=== PATIENT | male | born 1945 | race Caucasian/White ===

== ENCOUNTER → 2020-01-17 | Outpatient (CLI) | payer MEDICARE ==
[2019-09-13 11:00] VITALS: BP 119/64
[~2020-01-17] MED LIST: ASPI325T8 PO; ATORVASTATIN CA80 MG PO; CLOP75TA PO; GABA300C18 PO; GABA600T7 PO; METO-239 PO; METO25TA4 PO; NAPR-514 PO; TAMS0.4C97 PO
--- NOTE | 2020-01-17 10:24 | CARD ---
MR#: [id number] Date of Study: 01/17/2020 Ordering Physician: KRISTAL JENNINGS, Referring Physician: KRISTAL JENNINGS Tech: Lacey Cruz RDCS APPROVED REPORT EXAM: Two-dimensional and M-mode echocardiogram with Doppler and color Doppler. Other Information Quality : Good INDICATION Ischemic Cardiomyopathy Surgery/Intervention CABG: Date: 2003 2D DIMENSIONS RVDd2.8 (2.9-3.5cm)Left Atrium(2D)2.8 (1.6-4.0cm) IVSd0.9 (0.7-1.1cm)Aortic Root(2D)3.6 (2.0-3.7cm) LVDd4.9 (3.9-5.9cm)LVOT Diameter2.6 (1.8-2.4cm) PWd0.9 (0.7-1.1cm)LVDs3.4 (2.5-4.0cm) FS (%) 23.0 %SV65.7 ml M-Mode DIMENSIONS Aortic Root3.55 (2.2-3.7cm) Aortic Valve AoV Peak Nate.106.8cm/sAoV VTI23.0cm AO Peak GR.4.6mmHgLVOT Peak Nate.91.7cm/s AO Mean GR.3mmHgAVA (VMAX)4.39cm2 NICKI (VTI)4.50cm2 Mitral Valve MV E Ovmfdakv73.1cm/sMV DECEL [id number] MV A Hpasilyu09.5cm/sE/A Ratio1.1 Tricuspid Valve TR P. Omglzclg099pc/sRAP [id number] TR Peak Gr.81fvVpFNTH80oxNg Pulmonary Vein S1 Sawnipfq98.9cm/sD2 Njqjuqez87.2cm/s LEFT VENTRICLE The left ventricle is normal size. There is normal left ventricular wall thickness. Left ventricle sy stolic function is mildly impaired. The Ejection Fraction is 45-50%. Septal motion consistent with po st-operative state. There is mild hypokinesis in the inferior wall. Transmitral Doppler flow pattern is Grade I-abnormal relaxation pattern. RIGHT VENTRICLE The right ventricle is normal size. The right ventricular systolic function is normal. ATRIA The left atrium size is normal. The right atrium size is normal. The interatrial septum is intact wit h no evidence for an atrial septal defect or patent foramen ovale as noted on 2-D or Doppler imaging. AORTIC VALVE The aortic valve is mildly thickened but opens well. Doppler and Color Flow revealed no significant a ortic regurgitation. There is no significant aortic valvular stenosis. MITRAL VALVE The mitral valve is calcified but opens well. There is no evidence of mitral valve prolapse. There is no mitral valve stenosis. Doppler and Color-flow revealed mild mitral regurgitation. TRICUSPID VALVE The tricuspid valve is normal in structure and function. Doppler and Color Flow revealed mild tricusp id regurgitation. The PA pressure was estimated at 29 mmHg. There is no tricuspid valve stenosis. PULMONIC VALVE The pulmonic valve is not well visualized. Doppler and Color Flow revealed trace pulmonic valvular re gurgitation. There is no pulmonic valvular stenosis. GREAT VESSELS The aortic root is normal in size. The ascending aorta is mildly dilated at 3.5 cm. The IVC is normal in size and collapses >50% with inspiration. PERICARDIAL EFFUSION There is no evidence of significant pericardial effusion. Critical Notification Critical Value: No <Conclusion> The left ventricle is normal size. Left ventricle systolic function is mildly impaired. The Ejection Fraction is 45-50%. Septal motion consistent with post-operative state. There is mild hypokinesis in the inferior wall. Doppler and Color Flow revealed no significant aortic regurgitation. There is no significant aortic valvular stenosis. Doppler and Color-flow revealed mild mitral regurgitation. Doppler and Color Flow revealed mild tricuspid regurgitation. The PA pressure was estimated at 29 mmHg. The ascending aorta is mildly dilated at 3.5 cm. Signed by : Germain Lozano MD Electronically Approved : 01/17/2020 10:23:37
--- NOTE | 2020-01-17 11:19 | RAD ---
MR#: [id number] Date of Study: 01/17/2020 Ordering Physician: KRISTAL JENNINGS, Referring Physician: KRISTAL JENNINGS Tech: Nava Espino RDMS, MARCO, RTR APPROVED REPORT Patient Location: OUT-PATIENT Indications PAD Risk Factors History of Lower Extremity PAD: Bilaterally Hypertension Cardiac Disease VELOCITY AND DOPPLER WAVEFORM ANALYSIS RIGHT cm/secWaveformSeverity LEFT cm/secWaveform Severity pCFA 162.0pCFA 111.3 dCFA 119.2dCFA 112.1 Prof Fem Art. 81.0Prof Fem Art. 156.7 Fem Art Prox. 134.2Fem Art Prox. 128.3 Fem Art Mid. 128.4Fem Art Mid. 112.5 Fem Art Dist. 126.1Fem Art Dist. 97.8 Pop Art(AK) 70.7Pop Art(AK) 94.7 POULTRY HUSBANDMAN Prox. 51.4PTA Prox. 46.3 POULTRY HUSBANDMAN Dist. 70.1PTA Dist. 70.3 Per Art Prox. 70.7Per Art Prox. 55.5 MIGUEL Prox. 68.8ATA Prox. 61.1 DPA 68DPA 51 Findings Grayscale images of the bilateral lower extremity arterial vessels demonstrate moderate diffuse ather osclerotic plaque. On the right side there are grossly normal velocities with biphasic waveforms. O n the left side there are mostly biphasic waveforms with grossly normal velocities. There is three-v essel runoff bilaterally below the knees. No significant stenosis is identified. Critical Notification Critical Value: No <Conclusion> 1. No significant lower extremity arterial disease with moderate diffuse atherosclerotic plaquing no wilver. Signed by : Gerson Girard, Electronically Approved : 01/17/2020 11:18:38
== END | disposition home or self-care (01) ==
LOC: US 08:10
PROVIDERS: ATTEND Internal Medicine Cardiovascular Disease
DX: I08.1 Rheumatic disorders of both mitral and tricuspid valves (principal); I73.9 Peripheral vascular disease, unspecified
CPT/HCPCS: 93306; 93925

== ENCOUNTER 2021-09-24 11:26 | Inpatient (IN) | payer MEDICARE ==
[~2021-09-24] VITALS: Ht 177.8 cm; Wt 78.1 kg
[2021-09-24 12:03] LABS: BASO % 1 % (0-3); EOS # 0.2 x10^3/uL (0.0-0.7); EOS % 3 % (0-3); HEMATOCRIT 43.4 % (39.0-53.0); LYMPH # 1.3 x10^3/uL (1.0-4.8); LYMPH % 21 % (24-48); MEAN CORPUSCULAR HEMOGLOBIN 32 pg (25-35); MEAN CORPUSCULAR HGB CONC 35 g/dL (31-37); MEAN CORPUSCULAR VOLUME 94 fL (79-100); MONO # 0.8 x10^3/uL (0.0-1.1); MONO % 13 % (0-9); NEUT # 3.8 x10^3/uL (1.8-7.7); NEUT % 63 % (31-73); PLATELET COUNT 170 x10^3/uL (140-400); RED BLOOD COUNT 4.63 x10^6/uL (4.30-5.70); RED CELL DISTRIBUTION WIDTH 14.6 % (11.5-14.5); WHITE BLOOD COUNT 6.1 x10^3/uL (4.0-11.0)
--- NOTE | 2021-09-24 12:15 | RAD ---
EXAM: XR CHEST 1V 09/24/2021 11:52 AM CLINICAL INDICATION: High-grade heart block COMPARISON: Chest radiograph 09/12/2019 TECHNIQUE: AP upright view of the chest FINDINGS: The heart is normal in size. There are changes of median sternotomy. Slightly increased di ffuse interstitial prominence. No consolidation, pleural effusion, or pneumothorax. IMPRESSION: Slightly increased diffuse interstitial prominence, which could be seen with pulmonary v ascular congestion or infection. Electronically signed by: Dariana Vincent MD (09/24/2021 12:13 PM) [id number]
[2021-09-24 12:20] LABS: CALCIUM 8.5 mg/dL (8.5-10.1); CREATININE 0.8 mg/dL (0.7-1.3); GFR 94.2; POTASSIUM 3.9 mmol/L (3.5-5.1)
[2021-09-24 12:21] LABS: MAGNESIUM 2.1 mg/dL (1.8-2.4); PHOSPHORUS 3.9 mg/dL (2.6-4.7)
[2021-09-24 12:26] LABS: ALBUMIN 3.5 g/dL (3.4-5.0); ALBUMIN/GLOBULIN RATIO 0.9 (1.0-1.7); TOTAL BILIRUBIN 0.5 mg/dL (0.2-1.0); TOTAL PROTEIN 7.4 g/dL (6.4-8.2)
--- NOTE | 2021-09-24 12:43 | PHYS DOC ---
Past Medical History Past Medical History: High Cholesterol, Hypertension Past Surgical History: Coronary Bypass Surgery, Tonsillectomy, Other Additional Past Surgical Histo: cardiac cath, lens implant Smoking Status: Current Every Day Smoker Alcohol Use: None Drug Use: None General Adult EDM: Chief Complaint: HYPERTENSION HPI: HPI: Patient is a 76 year old male with history of CAD s/p CABG, HTN, HLD who presents with bradycardia. His had been checking at home and had readings in the 30s since yesterday. This morning he seemed slightly fatigued, so his brought him to the emergency department. He denies any symptoms such as palpitations, lightheadedness, chest pain, shortness of breath, but does endorse some mild fatigue. States he is otherwise been in his normal state of health. He has had discussions regarding pacemaker placement in the past, but this has been deferred. No recent travel, tick bites, rashes. Takes metoprolol tartrate 12.5 mg twice daily. Last dose was yesterday evening. No other negative inotropic agents are on his medication list. Review of Systems: Review of Systems: Constitutional: Denies fever or chills. Reports fatigue. [] HENT: Denies nasal congestion or sore throat. [] Respiratory: Denies cough or shortness of breath. [] Cardiovascular: Denies chest pain or edema. [] GI: Denies abdominal pain, nausea, vomiting, bloody stools or diarrhea. [] : Denies dysuria. [] Musculoskeletal: Denies back pain or joint pain. [] Integument: Denies rash. [] Neurologic: Denies headache, focal weakness or sensory changes. [] Psychiatric: Denies depression or anxiety. [] Heart Score: C/O Chest Pain: No Allergies: Allergies: Allergies Coded Allergies Type Severity Reaction Last Updated Verified No Known Drug Allergies 09/24/21 No Physical Exam: PE: Constitutional: Well-appearing, no acute distress. Stigmata of frequence tobacco abuse with yellow stained fingernails and hair. HENT: Normocephalic, atraumatic Neck: Normal range of motion, no tenderness, supple, no stridor. [] Cardiovascular: Bradycardic and regular Lungs & Thorax: Bilateral breath sounds clear to auscultation [] Abdomen: Bowel sounds normal, soft, no tenderness, no masses, no pulsatile masses. [] Skin: Warm, dry, no erythema, no rash. [] Back: No tenderness, no CVA tenderness. [] Extremities: No tenderness, no cyanosis, no clubbing, ROM intact, no edema. [] Neurologic: Alert and oriented X 3, normal motor function, normal sensory function, no focal deficits noted. [] Psychologic: Affect normal, judgement normal, mood normal. [] Current Patient Data: Labs: Laboratory Tests Test 09/24/21 11:58 White Blood Count 6.1 x10^3/uL (4.0-11.0) Red Blood Count 4.63 x10^6/uL (4.30-5.70) Hemoglobin 15.0 g/dL (13.0-17.5) Hematocrit 43.4 % (39.0-53.0) Mean Corpuscular Volume 94 fL (79-100) Mean Corpuscular Hemoglobin 32 pg (25-35) Mean Corpuscular Hemoglobin Concent 35 g/dL (31-37) Red Cell Distribution Width 14.6 % (11.5-14.5) H Platelet Count 170 x10^3/uL (140-400) Neutrophils (%) (Auto) 63 % (31-73) Lymphocytes (%) (Auto) 21 % (24-48) L Monocytes (%) (Auto) 13 % (0-9) H Eosinophils (%) (Auto) 3 % (0-3) Basophils (%) (Auto) 1 % (0-3) Neutrophils # (Auto) 3.8 x10^3/uL (1.8-7.7) Lymphocytes # (Auto) 1.3 x10^3/uL (1.0-4.8) Monocytes # (Auto) 0.8 x10^3/uL (0.0-1.1) Eosinophils # (Auto) 0.2 x10^3/uL (0.0-0.7) Basophils # (Auto) 0.0 x10^3/uL (0.0-0.2) Sodium Level 141 mmol/L (136-145) Potassium Level 3.9 mmol/L (3.5-5.1) Chloride Level 106 mmol/L (98-107) Carbon Dioxide Level 25 mmol/L (21-32) Anion Gap 10 (6-14) Blood Urea Nitrogen 18 mg/dL (8-26) Creatinine 0.8 mg/dL (0.7-1.3) Estimated GFR (Cockcroft-Gault) 94.2 BUN/Creatinine Ratio 23 (6-20) H Glucose Level 94 mg/dL (70-99) Calcium Level 8.5 mg/dL (8.5-10.1) Phosphorus Level 3.9 mg/dL (2.6-4.7) Magnesium Level 2.1 mg/dL (1.8-2.4) Total Bilirubin 0.5 mg/dL (0.2-1.0) Aspartate Amino Transferase (AST) 27 U/L (15-37) Alanine Aminotransferase (ALT) 43 U/L (16-63) Alkaline Phosphatase 79 U/L (46-116) Troponin I High Sensitivity 13 ng/L (4-75) Total Protein 7.4 g/dL (6.4-8.2) Albumin 3.5 g/dL (3.4-5.0) Albumin/Globulin Ratio 0.9 (1.0-1.7) L Thyroid Stimulating Hormone (TSH) 4.518 uIU/mL (0.358-3.74) H Laboratory Tests 09/24/21 11:58 Laboratory Tests 09/24/21 11:58 Vital Signs: Vital Signs Date Time Temp Pulse Resp B/P (MAP) Pulse Ox O2 Delivery O2 Flow Rate FiO2 09/24/21 12:05 38 16 173/74 (107) 97 Room Air 09/24/21 11:29 97.9 97.9 EKG: EKG: Third-degree heart block with junctional escape rhythm. Junctional rate 39. Atrial rate approximately 85. [] Radiology/Procedures: Radiology/Procedures: [] Impression: [facility] [address] [place] [address] IMAGING REPORT Signed PATIENT: CHANDLER PETER ACCOUNT: [id number] : 1945 LOCATION: ER AGE: 76 SEX: M EXAM STATUS: PRE ER ORD. PHYSICIAN: NADIA PATINO MD REASON: high degree heart block PROCEDURE: CHEST AP ONLY EXAM: XR CHEST 1V 09/24/2021 11:52 AM CLINICAL INDICATION: High-grade heart block COMPARISON: Chest radiograph 09/12/2019 TECHNIQUE: AP upright view of the chest FINDINGS: The heart is normal in size. There are changes of median sternotomy. Slightly increased diffuse interstitial prominence. No consolidation, pleural effusion, or pneumothorax. IMPRESSION: Slightly increased diffuse interstitial prominence, which could be seen with pulmonary vascular congestion or infection. Electronically signed by: Dariana Vincent MD (09/24/2021 12:13 PM) [id number] DICTATED and SIGNED BY: DARIANA VINCENT MD DATE: 09/24/21 [id number] Course & Med Decision Making: Course & Med Decision Making Pertinent Labs and Imaging studies reviewed. (See chart for details) Patient is 76-year-old male with history of HTN, HLD, CAD s/p CABG who presents with third-degree heart block. Junctional escape rhythm is in the 30s. Blood pressures been stable. Patient complains of mild fatigue, but is otherwise asymptomatic. He is on a small dose of metoprolol tartrate 12.5 mg twice daily, with last dose yesterday evening. No other negative inotropic agents. No tick bites or exposure to Lyme endemic areas. Electrolytes, TSH, troponin pending. Cardiology paged on patient arrival. Dr. Leiva has requested dopamine infusion peripherally at 2.5 mcg/kg/min with no titration. Patient will be admitted to hospitalist service at ICU level care. Makenzie Disclaimer: Makenzie Disclaimer: This electronic medical record was generated, in whole or in part, using a voice recognition dictation system. Departure Departure Impression: Primary Impression: Third degree heart block by electrocardiogram Disposition: ADMITTED INPATIENT Admitting Physician: SUBHA benito) Condition: STABLE Referrals: ALFRED MARINO MD (PCP) NADIA PATINO MD Sep 24, 2021 12:43
--- NOTE | 2021-09-24 13:20 | PDOC2 ---
MARLENY TANG BRICK VENEER MAKER 09/24/21 1320: CARDIAC CONSULT DATE OF CONSULT Date of Consult DATE: 09/24/21 TIME: 13:17 REASON FOR CONSULT Reason for Consult: 3rd degree heart block REFERRING PHYSICIAN Referring Physician: Dr. calloway SOURCE Source: Chart review, Patient HISTORY OF PRESENT ILLNESS HISTORY OF PRESENT ILLNESS This is a 76 yo male who presented secondary to bradycardia. reports that patient has not been himself since last . Had been sleeping more and appeared more fatigue, although patient himself expressed no complaints. He denies any dizziness, lightheadedness, diaphoresis, shortness of breath, chest pain, or nausea/vomiting. decided to take his vital signs yesterday and his pulse did not register. checked pulse and was noted in the 30's. She called and made appointment with his sap director for . This morning, thought he was a little confused and HR continued to be in the 30's. She called [facility], who told him not to take his metoprolol and to go to the ED. Patient was noted in complete heart block with HR in the 30's upon arrival. Dopamine was initiated. Patient is asymptomatic and vital signs are stable. PAST MEDICAL HISTORY Cardiovascular: CAD, CHF (ICM), HTN, Hyperlipidemia, Other (PAD) PAST SURGICAL HISTORY Past Surgical History: CABG SOCIAL HISTORY Smoke: 1 pack per day ALCOHOL: none Drugs: None Lives: with Family CURRENT MEDICATIONS CURRENT MEDICATIONS Current Medications Medications (Trade) Dose Ordered Sig/Morris Route PRN Reason Start Time Stop Time Status Last Admin Dose Admin Dopamine HCl/ Dextrose 250 ml @ 6.816 mls/ hr CONT PRN IV BRADYCARDIA 09/24/21 13:00 09/24/21 13:08 ALLERGIES ALLERGIES: Coded Allergies: No Known Drug Allergies (Unverified , 09/24/21) ROS Review of System 14 point ROS conducted with pertinent positives noted above in HPI PHYSICAL EXAM General: Alert, Oriented X3, Cooperative, No acute distress HEENT: Atraumatic, Mucous membr. moist/pink Lungs: Clear to auscultation Heart: Other (2nd degree type II AVB with HR in the upper 30's ) Abdomen: Soft Extremities: No edema Skin: No significant lesion Neuro: Normal speech, Sensation intact Psych/Mental Status: Mental status NL, Mood NL MUSCULOSKELETAL: Osteoarthritic changes both hands VITALS/I&O VITALS/I&O: Vital Signs Date Time Temp Pulse Resp B/P (MAP) Pulse Ox O2 Delivery O2 Flow Rate FiO2 09/24/21 12:05 38 16 173/74 (107) 97 Room Air 09/24/21 11:29 97.9 97.9 LABS Lab: Laboratory Tests Test 09/24/21 11:58 White Blood Count 6.1 x10^3/uL (4.0-11.0) Red Blood Count 4.63 x10^6/uL (4.30-5.70) Hemoglobin 15.0 g/dL (13.0-17.5) Hematocrit 43.4 % (39.0-53.0) Mean Corpuscular Volume 94 fL (79-100) Mean Corpuscular Hemoglobin 32 pg (25-35) Mean Corpuscular Hemoglobin Concent 35 g/dL (31-37) Red Cell Distribution Width 14.6 % (11.5-14.5) H Platelet Count 170 x10^3/uL (140-400) Neutrophils (%) (Auto) 63 % (31-73) Lymphocytes (%) (Auto) 21 % (24-48) L Monocytes (%) (Auto) 13 % (0-9) H Eosinophils (%) (Auto) 3 % (0-3) Basophils (%) (Auto) 1 % (0-3) Neutrophils # (Auto) 3.8 x10^3/uL (1.8-7.7) Lymphocytes # (Auto) 1.3 x10^3/uL (1.0-4.8) Monocytes # (Auto) 0.8 x10^3/uL (0.0-1.1) Eosinophils # (Auto) 0.2 x10^3/uL (0.0-0.7) Basophils # (Auto) 0.0 x10^3/uL (0.0-0.2) Sodium Level 141 mmol/L (136-145) Potassium Level 3.9 mmol/L (3.5-5.1) Chloride Level 106 mmol/L (98-107) Carbon Dioxide Level 25 mmol/L (21-32) Anion Gap 10 (6-14) Blood Urea Nitrogen 18 mg/dL (8-26) Creatinine 0.8 mg/dL (0.7-1.3) Estimated GFR (Cockcroft-Gault) 94.2 BUN/Creatinine Ratio 23 (6-20) H Glucose Level 94 mg/dL (70-99) Calcium Level 8.5 mg/dL (8.5-10.1) Phosphorus Level 3.9 mg/dL (2.6-4.7) Magnesium Level 2.1 mg/dL (1.8-2.4) Total Bilirubin 0.5 mg/dL (0.2-1.0) Aspartate Amino Transferase (AST) 27 U/L (15-37) Alanine Aminotransferase (ALT) 43 U/L (16-63) Alkaline Phosphatase 79 U/L (46-116) Troponin I High Sensitivity 13 ng/L (4-75) Total Protein 7.4 g/dL (6.4-8.2) Albumin 3.5 g/dL (3.4-5.0) Albumin/Globulin Ratio 0.9 (1.0-1.7) L Thyroid Stimulating Hormone (TSH) 4.518 uIU/mL (0.358-3.74) H Laboratory Tests 09/24/21 11:58 Laboratory Tests 09/24/21 11:58 ECHOCARDIOGRAM ECHOCARDIOGRAM <Conclusion> The left ventricle is normal size. Left ventricle systolic function is mildly impaired. The Ejection Fraction is 45-50%. Septal motion consistent with post-operative state. There is mild hypokinesis in the inferior wall. Doppler and Color Flow revealed no significant aortic regurgitation. There is no significant aortic valvular stenosis. Doppler and Color-flow revealed mild mitral regurgitation. Doppler and Color Flow revealed mild tricuspid regurgitation. The PA pressure was estimated at 29 mmHg. The ascending aorta is mildly dilated at 3.5 cm. DATE: 01/17/20 1017 HEART CATH HEART CATH Conclusion 1. Severe [place] vessel coronary artery disease s/p coronary artery bypass surgery as described above. The left internal mammary artery graft to the left anterior descending artery appeared atretic probably secondary to good antegrade flow in [place] vessel. The saphenous vein graft to the second and third obtuse marginal branches are occluded as well probably secondary to good antegrade flow. The saphenous vein graft to the diagonal branch is patent with significant lesion as described above but since his [place] vessel is chronically occluded the on the anastomosis, this can be managed medically. The saphenous vein graft to the right coronary artery showed significant 90-95% stenosis in the proximal segment, culprit vessel for patient's symptoms. 2. Successful PCI/drug eluting stent placement to the saphenous vein graft to the right coronary artery with distal embolic protection using filter wire. 3. Moderate to severe left ventricle systolic dysfunction with ejection fraction estimated at 30%. Recommendations 1. Aspirin 325 mg daily for one month followed by 81 mg daily 2. Plavix 75 mg daily for preferably one year 3. Cardiovascular risk factor modification including smoking cessation 4. Optimization of medical therapy for ischemic cardio myopathy and repeat 2-D echo in 3 months to evaluate the need for AICD implantation. DATE: 09/12/19 1527 ASSESSMENT/PLAN ASSESSMENT/PLAN 1. High-grade AV block with significant bradycardia; Initial EKG shows complete heart block. Dopamine initiated. Presently 2nd degree type II, AV block with HR in the upper 30's. Is asymptomatic and hemodynamically stable. 2. CAD; s/p CABG with 2004 and subsequent PCI/TRU to SVG to RCA. clinically stable. 3. H/o ischemic cardiomyopathy; echo 01/16 shows LV recovery with EF 45-50% 4. Accelerated hypertension 5. Hyperlipidemia; statin 6. Tobaccoism; discussed/encouraged cessation. patient is not interested at this time Recommendations Continue Dopamine gtt Hold metoprolol Avoid AV zahida blocking agents Given complete heart block, sick sinus syndrome, patient will need permanent pacemaker implantation. R/b/a discussed with patient and and they are agreeable Secondary prevention. Hold Plavix COVID swab NPO p MN Will plan for implantation tomorrow KRISTAL JENNINGS MD 09/24/21 1636: CARDIAC CONSULT ASSESSMENT/PLAN ASSESSMENT/PLAN Patient seen and examined. Agree with CLINICAL TRIAL ASSOCIATE's assessment and plan. Patient with complete heart block with symptomatic bradycardia -hemodynamically stable at this time Stop metoprolol and continue with dopamine infusion for chronotropic support CAD status clinically stable -continue current secondary prevention measures Ischemic cardiomyopathy clinically well compensated Plan for permanent pacemaker implantation tomorrow Risks and benefits explained and patient is agreeable MARLENY TANG APRN Sep 24, 2021 13:20 KRISTAL JENNINGS MD Sep 24, 2021 16:36
--- NOTE | 2021-09-24 13:28 | PDOC1 ---
History and Physical Date of Service: DOS: DATE: 09/24/21 TIME: 13:28 Chief Complaint: Chief Complain: irregular heartbeat History of Present Illness: HPI: Patient is a 76 year old male with history of CAD s/p CABG, HTN, HLD who presents with bradycardia. His had been checking at home and had readings in the 30s since yesterday. This morning he seemed slightly fatigued, so his brought him to the emergency department. He denies any symptoms such as palpitations, lightheadedness, chest pain, shortness of breath, but does endorse some mild fatigue. States he is otherwise been in his normal state of health. He has had discussions regarding pacemaker placement in the past, but this has been deferred. No recent travel, tick bites, rashes. Takes metoprolol tartrate 12.5 mg twice daily. Last dose was yesterday evening. No other negative inotropic agents are on his medication list. Past Medical/Surgical History: PMH/PSH: Past Medical History: High Cholesterol, Hypertension Past Surgical History: Coronary Bypass Surgery, Tonsillectomy, Other Additional Past Surgical Histo: cardiac cath, lens implant Smoking Status: Current Every Day Smoker Alcohol Use: None Drug Use: None Allergies: Allergies: Coded Allergies: No Known Drug Allergies (Unverified , 09/24/21) Family History: Family History: could not recall any Current Medications: Current Medications Current Medications Dopamine HCl/ Dextrose 250 ml @ 6.816 mls/ hr CONT PRN IV BRADYCARDIA Last administered on 09/24/21at 13:08; Start 09/24/21 at 13:00 Ondansetron HCl (Zofran) 4 mg PRN Q6HRS PRN IVP NAUSEA/VOMITING; Start 09/24/21 at 13:30; Status UNV Calcium Carbonate/ Glycine (Tums) 500 mg PRN Q3HRS PRN PO UPSET STOMACH; Start 09/24/21 at 13:30; Status UNV Info (Non-Icu Electrolyte Protocol) 1 ea PRN DAILY PRN MC SEE COMMENTS; Start 09/24/21 at 13:30; Status UNV Acetaminophen (Tylenol) 650 mg PRN Q6HRS PRN PO Headaches, Temp > 101.5F; Start 09/24/21 at 13:30; Status UNV Senna/Docusate Sodium (Senna Plus) 1 tab BID PO ; Start 09/24/21 at 21:00; Status UNV Active Scripts Active Reported Flomax (Tamsulosin Hcl) 0.4 Mg Cap.er.24h 0.4 Mg PO DAILY Naproxen 500 Mg Tablet 500 Mg PO BID PRN Gabapentin 600 Mg Tablet 300 Mg PO HS Metoprolol Tartrate 25 Mg Tablet 0.5 Tab PO BID Atorvastatin Calcium 80 Mg Tablet 1 Tab PO DAILY Aspirin 325 Mg Tablet 1 Tab PO DAILY Clopidogrel (Clopidogrel Bisulfate) 75 Mg Tablet 1 Tab PO DAILY ROS: Review of Systems Review of System Unless noted in HPI 14pt ros was negative Physical Exam: Vital Signs: Vital Signs Date Time Temp Pulse Resp B/P (MAP) Pulse Ox O2 Delivery O2 Flow Rate FiO2 09/24/21 12:05 38 16 173/74 (107) 97 Room Air 09/24/21 11:29 97.9 97.9 Physcial Exam: GEN: No apparent distress. Alert and oriented HEENT: Normal cephalic, atraumatic, external auditory canals are patent EYES: Extraocular muscles are intact, pupil are equally round and reactive to light and accommodation MUSCULOSKELETAL: Well developed , well nourished, good range of motion ENDOCRINE: No thyromegaly was palpated LYMPHATICS: No cervical chain or axillary nodes were noted HEMATOPOIETIC: No bruising NECK: Supple, no JVD, no thyromegaly was noted LUNGS: Clear to auscultation in all lung gonzalez without rhonchi or wheezing HEART: bradycardia ABDOMEN: Soft, nontender. Positive bowel sounds, no organomegaly, normal bowel sounds EXTREMITIES: Without clubbing, cyanosis, or edema. Pedal pulses intact. Negative Homans sign NEUROLOGIC: Normal speech and tone. A&O x 3, moves all extremities, no obvious focal deficits PSYCHIATRIC: Normal affect, normal mood. Stable SKIN: No ulcerations or rashes, good skin turgor, no jaundice VASCULAR: Good capillary refill, neurovascular bundle appears to be intact Labs: Labs: Laboratory Tests Test 09/24/21 11:58 White Blood Count 6.1 x10^3/uL (4.0-11.0) Red Blood Count 4.63 x10^6/uL (4.30-5.70) Hemoglobin 15.0 g/dL (13.0-17.5) Hematocrit 43.4 % (39.0-53.0) Mean Corpuscular Volume 94 fL (79-100) Mean Corpuscular Hemoglobin 32 pg (25-35) Mean Corpuscular Hemoglobin Concent 35 g/dL (31-37) Red Cell Distribution Width 14.6 % (11.5-14.5) Platelet Count 170 x10^3/uL (140-400) Neutrophils (%) (Auto) 63 % (31-73) Lymphocytes (%) (Auto) 21 % (24-48) Monocytes (%) (Auto) 13 % (0-9) Eosinophils (%) (Auto) 3 % (0-3) Basophils (%) (Auto) 1 % (0-3) Neutrophils # (Auto) 3.8 x10^3/uL (1.8-7.7) Lymphocytes # (Auto) 1.3 x10^3/uL (1.0-4.8) Monocytes # (Auto) 0.8 x10^3/uL (0.0-1.1) Eosinophils # (Auto) 0.2 x10^3/uL (0.0-0.7) Basophils # (Auto) 0.0 x10^3/uL (0.0-0.2) Sodium Level 141 mmol/L (136-145) Potassium Level 3.9 mmol/L (3.5-5.1) Chloride Level 106 mmol/L (98-107) Carbon Dioxide Level 25 mmol/L (21-32) Anion Gap 10 (6-14) Blood Urea Nitrogen 18 mg/dL (8-26) Creatinine 0.8 mg/dL (0.7-1.3) Estimated GFR (Cockcroft-Gault) 94.2 BUN/Creatinine Ratio 23 (6-20) Glucose Level 94 mg/dL (70-99) Calcium Level 8.5 mg/dL (8.5-10.1) Phosphorus Level 3.9 mg/dL (2.6-4.7) Magnesium Level 2.1 mg/dL (1.8-2.4) Total Bilirubin 0.5 mg/dL (0.2-1.0) Aspartate Amino Transf (AST/SGOT) 27 U/L (15-37) Alanine Aminotransferase (ALT/SGPT) 43 U/L (16-63) Alkaline Phosphatase 79 U/L (46-116) Troponin I High Sensitivity 13 ng/L (4-75) Total Protein 7.4 g/dL (6.4-8.2) Albumin 3.5 g/dL (3.4-5.0) Albumin/Globulin Ratio 0.9 (1.0-1.7) Thyroid Stimulating Hormone (TSH) 4.518 uIU/mL (0.358-3.74) Laboratory Tests Test 09/24/21 11:58 White Blood Count 6.1 x10^3/uL (4.0-11.0) Red Blood Count 4.63 x10^6/uL (4.30-5.70) Hemoglobin 15.0 g/dL (13.0-17.5) Hematocrit 43.4 % (39.0-53.0) Mean Corpuscular Volume 94 fL (79-100) Mean Corpuscular Hemoglobin 32 pg (25-35) Mean Corpuscular Hemoglobin Concent 35 g/dL (31-37) Red Cell Distribution Width 14.6 % (11.5-14.5) Platelet Count 170 x10^3/uL (140-400) Neutrophils (%) (Auto) 63 % (31-73) Lymphocytes (%) (Auto) 21 % (24-48) Monocytes (%) (Auto) 13 % (0-9) Eosinophils (%) (Auto) 3 % (0-3) Basophils (%) (Auto) 1 % (0-3) Neutrophils # (Auto) 3.8 x10^3/uL (1.8-7.7) Lymphocytes # (Auto) 1.3 x10^3/uL (1.0-4.8) Monocytes # (Auto) 0.8 x10^3/uL (0.0-1.1) Eosinophils # (Auto) 0.2 x10^3/uL (0.0-0.7) Basophils # (Auto) 0.0 x10^3/uL (0.0-0.2) Sodium Level 141 mmol/L (136-145) Potassium Level 3.9 mmol/L (3.5-5.1) Chloride Level 106 mmol/L (98-107) Carbon Dioxide Level 25 mmol/L (21-32) Anion Gap 10 (6-14) Blood Urea Nitrogen 18 mg/dL (8-26) Creatinine 0.8 mg/dL (0.7-1.3) Estimated GFR (Cockcroft-Gault) 94.2 BUN/Creatinine Ratio 23 (6-20) Glucose Level 94 mg/dL (70-99) Calcium Level 8.5 mg/dL (8.5-10.1) Phosphorus Level 3.9 mg/dL (2.6-4.7) Magnesium Level 2.1 mg/dL (1.8-2.4) Total Bilirubin 0.5 mg/dL (0.2-1.0) Aspartate Amino Transf (AST/SGOT) 27 U/L (15-37) Alanine Aminotransferase (ALT/SGPT) 43 U/L (16-63) Alkaline Phosphatase 79 U/L (46-116) Troponin I High Sensitivity 13 ng/L (4-75) Total Protein 7.4 g/dL (6.4-8.2) Albumin 3.5 g/dL (3.4-5.0) Albumin/Globulin Ratio 0.9 (1.0-1.7) Thyroid Stimulating Hormone (TSH) 4.518 uIU/mL (0.358-3.74) Assessment/Plan Assessment/Plan 3rd Degree Heart Block, hx cad s/p CABG, HTN, HPLD -Admit to hospitalist -Cards consult -Hold Metoprolol -Start Dopamine -Plan for pacemaker 09/25 -NPO midnight Justifications for Admission Other Justification DELBERT GARCIA MD Sep 24, 2021 13:28
[2021-09-24] MEDS ORDERED: ACETAMINOPHEN 325 MG TABLET. PO PRN (13:30)
[2021-09-24] MEDS ORDERED: ONDANSETRON PF 4 MG/2 ML VIAL. IVP PRN (13:30)
[2021-09-24] MEDS ORDERED: CALCIUM CARBONATE 500 MG TAB.CHEW PO PRN (13:30)
[2021-09-24] MEDS ORDERED: ELECTROLYTE (NON-ICU) PROTOCOL. MC PRN (13:30)
[2021-09-24] MEDS: LISINOPRIL 10 MG TABLET PO SCH (14:30)
[2021-09-24] MEDS ORDERED: hydrALAZINE 20 MG/ML VIAL. IVP PRN (14:30)
--- NOTE | 2021-09-24 14:43 | EKG ---
[facility] [address] [place] [address] Test Date: 2021-09-24 Test Time: 11:43:33 Pat Name: CHANDLER PETER Department: Room: Gender: M Automatic Buffer: : [id number] Requested By: NADIA PATINO Order Number: [id number] Reading MD: Alcides Leiva Measurements Intervals [place] Rate: 39 P: 39 MA: 150 QRS: -33 QRSD: 110 T: 73 QT: 524 QTc: 423 Interpretive Statements SINUS BRADYCARDIA ABNORMAL LEFT AXIS DEVIATION INCOMPLETE RIGHT BUNDLE BRANCH BLOCK T ABNORMALITY IN HIGH LATERAL LEADS ABNORMAL ECG Electronically Signed On 09-24-2021 19:24:50 DRY CLEANING MANAGER by Alcides Leiva
[2021-09-24 19:59] VITALS: BP 148/68
[2021-09-24] MEDS ORDERED: ASPI-630 PO (20:02)
--- NOTE | 2021-09-24 20:10 | NUR ---
The patient, CHANDLER PETER, 76 y/o, M admitted by DELBERT GARCIA MD, was given written information regarding hospital policies, unit procedures and contact persons. Valuables were checked and documented. call light in reach will cont to monitor pt status and safety. pmrn
[2021-09-24 20:59] VITALS: BP 148/71
[2021-09-24] MEDS: GABAPENTIN 300 MG CAPSULE. PO SCH (21:36)
[2021-09-24] MEDS: SENNOSIDES/DOCUSATE 8.6/50MG TABLET. PO SCH (21:36)
[2021-09-24 21:59] VITALS: BP 136/62
[2021-09-24 23:05] VITALS: BP 139/73
[2021-09-25] VITALS (10 sets, daily range): BP systolic 115–166; BP diastolic 49–77
[2021-09-25 05:11] LABS: BASO % 1 % (0-3); EOS # 0.3 x10^3/uL (0.0-0.7); EOS % 4 % (0-3); HEMATOCRIT 41.9 % (39.0-53.0); HEMOGLOBIN 14.1 g/dL (13.0-17.5); LYMPH # 1.3 x10^3/uL (1.0-4.8); LYMPH % 21 % (24-48); MEAN CORPUSCULAR HEMOGLOBIN 32 pg (25-35); MEAN CORPUSCULAR HGB CONC 34 g/dL (31-37); MEAN CORPUSCULAR VOLUME 94 fL (79-100); MONO # 0.8 x10^3/uL (0.0-1.1); MONO % 13 % (0-9); NEUT % 62 % (31-73); PLATELET COUNT 155 x10^3/uL (140-400); RED BLOOD COUNT 4.45 x10^6/uL (4.30-5.70); RED CELL DISTRIBUTION WIDTH 14.4 % (11.5-14.5); WHITE BLOOD COUNT 6.4 x10^3/uL (4.0-11.0)
[2021-09-25 05:14] LABS: CALCIUM 8.4 mg/dL (8.5-10.1); CREATININE 0.8 mg/dL (0.7-1.3); GFR 94.2; POTASSIUM 3.9 mmol/L (3.5-5.1)
[2021-09-25 05:20] LABS: PROTHROMBIN TIME PATIENT 14.9 SEC (11.7-14.0)
[2021-09-25] MEDS ORDERED: ceFAZolin SODIUM IV Push 1 GM VIAL. IVP ONE ×4 (06:00→16:30)
[2021-09-25] MEDS ORDERED: ceFAZolin SODIUM 1 GM in IV NORMAL SALINE 100ML 100 ML IRR ONE (10:30)
[2021-09-25] MEDS ORDERED: LIDOCAINE 2%/EPI 1:100,000 20 ML VIAL. IJ ONE (10:30)
[2021-09-25] MEDS ORDERED: fentaNYL PF VIAL 100 MCG/2 ML VIAL IV ONE (10:30)
[2021-09-25] MEDS ORDERED: MIDAZOLAM HCL/PF 2 MG/2 ML VIAL. IV ONE (10:30)
[2021-09-25] MEDS ORDERED: LIDOCAINE 2%/EPI 1:100,000 20 ML VIAL. ONE (10:49)
[2021-09-25] MEDS ORDERED: MIDAZOLAM HCL/PF 2 MG/2 ML VIAL. ONE (11:10)
[2021-09-25] MEDS ORDERED: fentaNYL PF VIAL 100 MCG/2 ML VIAL ONE (11:10)
--- NOTE | 2021-09-25 11:36 | PDOC ---
[facility] PROGRESS NOTE Date of Service DOS: DATE: 09/25/21 TIME: 11:35 Chief Complaint Chief Complaint 3rd Degree Heart Block, hx cad s/p CABG, HTN, HPLD -Admit to hospitalist -Cards consult -Hold Metoprolol -Start Dopamine -Plan for pacemaker 09/25 History of Present Illness History of Present Illness 09/25 Planning for pacemaker today. Patient off floor for pacemaker. Overnight events reviewed. Labs and tele reviewed. Will eval again after procedure. Vitals/I&O Vitals/I&O: Vital Signs Date Time Temp Pulse Resp B/P (MAP) Pulse Ox O2 Delivery O2 Flow Rate FiO2 09/25/21 07:30 98.8 34 157/73 (101) 99 Nasal Cannula 2.0 98.8 09/24/21 23:05 18 I & O 09/24/21 09/24/21 09/25/21 15:00 23:00 07:00 Intake Total 210 ml Output Total 200 ml 300 ml Balance -200 ml -90 ml Physical Exam General: Alert, Oriented X3, Cooperative, No acute distress Heart: Other (2nd degree type II AVB with HR in the upper 30's ) Lungs: Other (stable) Abdomen: Soft Extremities: No edema Skin: No significant lesion Labs Labs: Laboratory Tests Test 09/24/21 11:58 09/24/21 13:54 09/25/21 04:45 White Blood Count 6.1 x10^3/uL (4.0-11.0) 6.4 x10^3/uL (4.0-11.0) Red Blood Count 4.63 x10^6/uL (4.30-5.70) 4.45 x10^6/uL (4.30-5.70) Hemoglobin 15.0 g/dL (13.0-17.5) 14.1 g/dL (13.0-17.5) Hematocrit 43.4 % (39.0-53.0) 41.9 % (39.0-53.0) Mean Corpuscular Volume 94 fL (79-100) 94 fL (79-100) Mean Corpuscular Hemoglobin 32 pg (25-35) 32 pg (25-35) Mean Corpuscular Hemoglobin Concent 35 g/dL (31-37) 34 g/dL (31-37) Red Cell Distribution Width 14.6 % (11.5-14.5) 14.4 % (11.5-14.5) Platelet Count 170 x10^3/uL (140-400) 155 x10^3/uL (140-400) Neutrophils (%) (Auto) 63 % (31-73) 62 % (31-73) Lymphocytes (%) (Auto) 21 % (24-48) 21 % (24-48) Monocytes (%) (Auto) 13 % (0-9) 13 % (0-9) Eosinophils (%) (Auto) 3 % (0-3) 4 % (0-3) Basophils (%) (Auto) 1 % (0-3) 1 % (0-3) Neutrophils # (Auto) 3.8 x10^3/uL (1.8-7.7) 4.0 x10^3/uL (1.8-7.7) Lymphocytes # (Auto) 1.3 x10^3/uL (1.0-4.8) 1.3 x10^3/uL (1.0-4.8) Monocytes # (Auto) 0.8 x10^3/uL (0.0-1.1) 0.8 x10^3/uL (0.0-1.1) Eosinophils # (Auto) 0.2 x10^3/uL (0.0-0.7) 0.3 x10^3/uL (0.0-0.7) Basophils # (Auto) 0.0 x10^3/uL (0.0-0.2) 0.0 x10^3/uL (0.0-0.2) Sodium Level 141 mmol/L (136-145) 140 mmol/L (136-145) Potassium Level 3.9 mmol/L (3.5-5.1) 3.9 mmol/L (3.5-5.1) Chloride Level 106 mmol/L (98-107) 108 mmol/L (98-107) Carbon Dioxide Level 25 mmol/L (21-32) 26 mmol/L (21-32) Anion Gap 10 (6-14) 6 (6-14) Blood Urea Nitrogen 18 mg/dL (8-26) 14 mg/dL (8-26) Creatinine 0.8 mg/dL (0.7-1.3) 0.8 mg/dL (0.7-1.3) Estimated GFR (Cockcroft-Gault) 94.2 94.2 BUN/Creatinine Ratio 23 (6-20) Glucose Level 94 mg/dL (70-99) 89 mg/dL (70-99) Calcium Level 8.5 mg/dL (8.5-10.1) 8.4 mg/dL (8.5-10.1) Phosphorus Level 3.9 mg/dL (2.6-4.7) Magnesium Level 2.1 mg/dL (1.8-2.4) Total Bilirubin 0.5 mg/dL (0.2-1.0) Aspartate Amino Transf (AST/SGOT) 27 U/L (15-37) Alanine Aminotransferase (ALT/SGPT) 43 U/L (16-63) Alkaline Phosphatase 79 U/L (46-116) Troponin I High Sensitivity 13 ng/L (4-75) Total Protein 7.4 g/dL (6.4-8.2) Albumin 3.5 g/dL (3.4-5.0) Albumin/Globulin Ratio 0.9 (1.0-1.7) Thyroid Stimulating Hormone (TSH) 4.518 uIU/mL (0.358-3.74) SARS-CoV-2 RNA (LAST) Negative (Negative) SARS-CoV-2 Antigen (Rapid) Negative (NEGATIVE) Prothrombin Time 14.9 SEC (11.7-14.0) Prothromb Time International Ratio 1.2 (0.8-1.1) Assessment and Plan Assessmemt and Plan Problems Medical Problems: (1) Third degree heart block by electrocardiogram Status: Acute Comment Review of Relevant I have reviewed the following items herminia (where applicable) has been applied. Medications: Current Medications Medications (Trade) Dose Ordered Sig/Morris Route PRN Reason Start Time Stop Time Status Last Admin Dose Admin Dopamine HCl/ Dextrose 250 ml @ 6.816 mls/ hr CONT PRN IV BRADYCARDIA 09/24/21 13:00 09/24/21 13:08 Senna/Docusate Sodium (Senna Plus) 1 tab BID PO 09/24/21 21:00 09/24/21 21:36 Cefazolin Sodium (Ancef) 1 gm 1X ONCE IVP 09/25/21 06:00 09/25/21 06:01 DC 09/25/21 11:26 Gabapentin (Neurontin) 300 mg QHS PO 09/24/21 21:00 09/24/21 21:36 Justifications for Admission Other Justification DELBERT GARCIA MD Sep 25, 2021 11:36
--- NOTE | 2021-09-25 12:15 | NUR ---
SS following for discharge planning. SS reviewed pt chart and discussed with pt RN. Pt is from home with spouse and is currently requiring oxygen at two liters nasal canula. COVID19 negative. Cardiology consulted. Dopamine drip. Pt having pacemaker placement today. SS will continue to follow for discharge planning.
--- NOTE | 2021-09-25 12:55 | PDOC ---
MODERATE SEDATION ASSESSMENT RISKS/ALTERNATIVES Risks/Alternatives Risks and alternatives of this type of sedation and procedure discussed with: RISK/ALTERNATIVES: Patient H & P ON CHART H & P H & P on chart and reviewed for co-morbid conditions and appropriate labs. H&P ON CHART: Yes STATUS PREG STATUS ASSESSED: N/A MEDS/ALLERGIES REVIEWED Meds/Allergies Reviewed Medications and Allergies including time and route of recently administered narcotics and sedatives. MEDS/ALLERGIES REVIEWED: Yes ASA RATING ASA RATING: III AIRWAY ASSESSMENT Airway Assessment Airway patency, oral function limitations, presence of caps, crowns, dentures, partials, and ability to extend neck assessed. AIRWAY ASSESSMENT: Yes MALLAMPATI SCORE MALLAMPATI SCORE: II PRE-SEDATION ASSESSMENT PRE-SEDATION ASSESSMENT: Yes KRISTAL JENNINGS MD Sep 25, 2021 12:55
--- NOTE | 2021-09-25 13:08 | CARD ---
MR#: [id number] Date of Study: 09/25/2021 Ordering Physician: MARLENY TANG, Referring Physician: MARLENY TANG, Tech: APPROVED REPORT HISTORY FL TIME: 6.2 MIN DOSE: 19 GYCM2 MODERATE SEDATION: 70 MIN PROCEDURES Implantation of Medtronic dual-chamber permanent pacemaker INDICATIONS Complete heart block with severe symptomatic bradycardia PROCEDURE After explaining the risks, benefits, and alternative options, informed consent was obtained from the patient. The patient was brought to the cardiac catheterization lab and the left chest and shoulder were prepp ed and draped in a sterile manner. IV conscious sedation was used throughout procedure with appropriate monitoring and was performed in the presence of a registered nurse who was an independent trained observer other than the physician p erforming the procedure. During this case, Fluoroscopy were used for imaging. Specimen(s) Removed: No Estimated Blood loss: 15 cc's. 35 cc of 2% lidocaine was infiltrated into the skin and subcutaneous tissues for local anesthesia. A n incision was made over the left infraclavicular fossa and 9 and 6 Macedonian sheaths were inserted. A Medtronic bipolar active fixation right ventricular lead model 479669, serial number [id number] was a dvanced under fluoroscopic guidance and the tip was positioned in the right ventricular apex. Follow ing this, a Medtronic bipolar active fixation right atrial lead model 316015, serial number [id number] was positioned in the right atrial appendage under fluoroscopic guidance. The leads were secured i o place and were attached to a Medtronic dual-chamber permanent pacemaker generator model [id number], s erial number [id number]. This was placed in the pocket that was subsequently closed in 3 layers. He mostasis was secured. The right ventricular lead showed a sensing amplitude of 9.3 mV, impedance of 910 ohms and a threshol d of 1.3 V. The right atrial lead showed a sensing amplitude of 2.7 mV, impedance of 658 ohms and a threshold of 1.0 V. Patient tolerated the procedure well. There were no immediate complications. S uccessful implantation of Medtronic dual-chamber permanent pacemaker CONCLUSION Successful implantation of Medtronic dual-chamber permanent pacemaker for complete heart block with s evere symptomatic bradycardia Signed by : Alcides Leiva, Electronically Approved : 09/25/2021 13:08:20
--- NOTE | 2021-09-25 13:24 | RAD ---
EXAM: Chest, single view. HISTORY: Pacemaker placement. COMPARISON: 09/24/2021 FINDINGS: A frontal view of the chest is obtained. There has been placement of a dual lead left cardi ac pacemaker. The leads overlying expected position. There is no pneumothorax. There is stable diffus e interstitial infiltrate. There is evidence of prior CABG. The heart is normal in size. IMPRESSION: 1. Left-sided dual-lead cardiac pacemaker overlying expected position. 2. Stable diffuse interstitial infiltrate. Electronically signed by: Poppy Chamorro MD (09/25/2021 1:22 PM) [id number]
[2021-09-25] MEDS: ASPIRIN CHEWABLE 81 MG TABLET. PO SCH (15:42)
[2021-09-25] MEDS: ATORVASTATIN CALCIUM 40 MG TABLET. PO SCH (15:42)
[2021-09-25] MEDS: SENNOSIDES/DOCUSATE 8.6/50MG TABLET. PO SCH ×2 (15:42→21:23)
[2021-09-25] MEDS: TAMSULOSIN 0.4 MG CAP.ER.24H. PO SCH (15:42)
[2021-09-25] MEDS: LISINOPRIL 10 MG TABLET PO SCH (15:42)
--- NOTE | 2021-09-25 18:23 | NUR ---
Assumed care of patient from HILLARY Andrews. Agree with previous nurse assessment. Will continue to monitor.
[2021-09-25] MEDS: GABAPENTIN 300 MG CAPSULE. PO SCH (21:23)
[2021-09-26 03:27] VITALS: BP 147/82
[2021-09-26 07:00] VITALS: BP 163/79
--- NOTE | 2021-09-26 08:45 | RAD ---
EXAM: Chest, 2 views. HISTORY: Pacemaker placement. COMPARISON: 09/25/2021 FINDINGS: 2 views of chest are obtained. There is a dual lead left cardiac pacemaker in expected posi tion. There is no pneumothorax. There is stable diffuse increased interstitial opacity. There are tra ce pleural effusions. There is evidence of prior CABG. IMPRESSION: 1. Dual-lead cardiac pacemaker in expected position. 2. Stable diffuse interstitial prominence and suspected trace pleural effusions. Electronically signed by: Poppy Chamorro MD (09/26/2021 8:43 AM) [id number]
[2021-09-26] MEDS: SENNOSIDES/DOCUSATE 8.6/50MG TABLET. PO SCH (09:00)
[2021-09-26] MEDS: TAMSULOSIN 0.4 MG CAP.ER.24H. PO SCH (09:32)
[2021-09-26] MEDS: ASPIRIN CHEWABLE 81 MG TABLET. PO SCH (09:32)
[2021-09-26] MEDS: ATORVASTATIN CALCIUM 40 MG TABLET. PO SCH (09:32)
[2021-09-26] MEDS: LISINOPRIL 10 MG TABLET PO SCH (09:32)
[2021-09-26 11:00] VITALS: BP 155/86
--- NOTE | 2021-09-26 11:46 | PDOC ---
LEAH LEES EXTRACORPOREAL TECHNICIAN 09/26/21 1146: CARDIO Progress Notes Date and Time Date of Service 09/26/2021 Time of Evaluation 1110 Subjective Subjective: No Chest Pain, No shortness of breath, No Palpitations Vitals Vitals Vital Signs Date Time Temp Pulse Resp B/P (MAP) Pulse Ox O2 Delivery O2 Flow Rate FiO2 09/26/21 09:32 65 163/79 09/26/21 07:00 98.6 22 95 Nasal Cannula 2.0 98.6 Weight Weight [ ] Input and Output Intake and Output Intake and Output 09/26/21 07:00 Intake Total 430 ml Output Total 1150 ml Balance -720 ml Intake Oral 430 ml Output Urine Total 1150 ml Physical Exam HEENT: Neck Supple W Full Motion Chest: Symmetric LUNGS: Clear to Auscultation Heart: RRR (V paced) Abdomen: Soft N/T Other Exams Left chest surgical incision intact with steri strips, D/I, neurovascular status intact to LUE with sling Assessment Assessment 1. CHF with symptomatic bradycardia: S/P PPM medtronic 2. CAD; s/p CABG with 2004 and subsequent PCI/TRU to SVG to RCA. clinically stable. 3. H/o ischemic cardiomyopathy; echo 01/16 shows LV recovery with EF 45-50% 4. Accelerated hypertension': labile episode 5. Hyperlipidemia; statin 6. Tobaccoism; discussed/encouraged cessation. patient is not interested at this time Recommendations Secondary prevention measures Resume metoprolol Follow up on 10/09/2021 at 1015 for wound check Post PPM instruction Justicifation of Admission Dx: Justifications for Admission: Justification of Admission Dx: Yes KRISTAL JENNINGS MD 09/26/21 1150: CARDIO Progress Notes Assessment Assessment Patient seen and examined. Agree with RAND MAKER's assessment and plan. s/p permanent pacemaker implantation for complete heart block, stable Incision looks good. Chest x-ray without pneumothorax. Device interrogation normal. CAD status clinically stable. DC home today and follow-up as scheduled LEAH LEES APRN Sep 26, 2021 11:46 KRISTAL JENNINGS MD Sep 26, 2021 11:50
[2021-09-26] MEDS ORDERED: METOPROLOL TART IMMED RELEASE 25 MG TABLET. PO SCH (12:00)
--- NOTE | 2021-09-26 12:34 | NUR ---
SS following up with discharge planning. SS reviewed pt chart and discussed with pt RN. Pt is currently requiring oxygen at two liters nasal canula. COVID19 negative. Cardiology following. Pt had pacemaker placement on 09/25/2021. Discharge order on the chart for home with self care. Pt has no home oxygen. Six minute walk ordered. SS will continue to follow for discharge planning. Addendum: 09/26/21 at 1311 by JASE ARREGUIN SS Six minute walk completed and script for oxygen received. Script and clinical phoned and faxed to [facility] [employer], ; fax [phone]. Oxygen tank provided to pt for home.
[2021-09-26] MEDS ORDERED: LISI10TA16 PO (12:41)
--- NOTE | 2021-09-26 12:44 | PDOC3 ---
[facility]-Discharge Summary Date of Admission: Date of Admission: Sep 24, 2021 Date of Discharge: Date of Discharge: Sep 26, 2021 Admission Diagnosis: Problems: (1) Third degree heart block by electrocardiogram Consults: Consults: Cardiology Hospital Course: Hospital Course: Patient is a 76 year old male with history of CAD s/p CABG, HTN, HLD who presents with bradycardia. His had been checking at home and had readings in the 30s since yesterday. This morning he seemed slightly fatigued, so his brought him to the emergency department. He denies any symptoms such as palpitations, lightheadedness, chest pain, shortness of breath, but does endorse some mild fatigue. States he is otherwise been in his normal state of health. He has had discussions regarding pacemaker placement in the past, but this has been deferred. No recent travel, tick bites, rashes. Takes metoprolol tartrate 12.5 mg twice daily. Last dose was yesterday evening. No other negative inotropic agents are on his medication list. Patient underwent pacemaker placement on the tolerated well. Able to d ischarge on September 26. Greater than 30 minutes spent on discharge. 18 minutes advance care planning. Disposition: Disposition/Orders: D/C to Home Activity: Activity: Resume previous activity Diet: Diet: Cardiac Medications: Home Meds Active Scripts Lisinopril (LISINOPRIL) 10 Mg Tablet, 10 MG PO DAILY for htn for 30 Days, #30 TAB Prov:DELBERT GARCIA MD 09/26/21 Reported Medications Aspirin (ASPIRIN) 81 Mg Tab.chew, 81 MG PO DAILY for blood thinner, heart, TAB.CHEW 09/24/21 Tamsulosin Hcl (FLOMAX) 0.4 Mg Cap.er.24h, 0.4 MG PO DAILY for BPH, TAB 09/12/19 Naproxen (NAPROXEN) 500 Mg Tablet, 500 MG PO BID PRN for PAIN, TAB 09/12/19 Gabapentin (GABAPENTIN) 600 Mg Tablet, 300 MG PO HS for NEUROGENIC PAIN, TAB 09/12/19 Metoprolol Tartrate (METOPROLOL TARTRATE) 25 Mg Tablet, 0.5 TAB PO BID for HTN, #180 TAB 3 Refills 09/12/19 Atorvastatin Calcium (ATORVASTATIN CALCIUM) 80 Mg Tablet, 1 TAB PO DAILY, #30 TAB 5 Refills 05/14/14 Clopidogrel Bisulfate (CLOPIDOGREL) 75 Mg Tablet, 1 TAB PO DAILY, #90 TAB 1 Refill 05/14/14 Scheduled Aspirin (Aspirin), 81 MG PO DAILY, (Reported) Atorvastatin Calcium (Atorvastatin Calcium), 1 TAB PO DAILY, (Reported) Clopidogrel Bisulfate (Clopidogrel), 1 TAB PO DAILY, (Reported) Gabapentin (Gabapentin), 300 MG PO HS, (Reported) Lisinopril (Lisinopril), 10 MG PO DAILY Metoprolol Tartrate (Metoprolol Tartrate), 0.5 TAB PO BID, (Reported) Tamsulosin Hcl (Flomax), 0.4 MG PO DAILY, (Reported) Scheduled PRN Naproxen (Naproxen), 500 MG PO BID PRN for PAIN, (Reported) Justicifation of Admission Dx: Justifications for Admission: Justification of Admission Dx: Yes DELBERT GARCIA MD Sep 26, 2021 12:44
[2021-09-26 13:52] VITALS: BP 155/86
--- NOTE | 2021-09-26 17:25 | NUR ---
Discharge Note: CHANDLER PETER Discharge instructions and discharge home medications reviewed with Patient and a copy given. All questions have been answered and understanding verbalized. The following instructions and handouts were given: lisinopril, care after pacemaker, importance of checking HR and BP prior to taking metoprolol, bradycardia IV's discontinued, no complications Patient discharged to home with family assistance. Patient went home with 2 L on exertion. All belongings taken home with patient.
== END 2021-09-26 16:52 | disposition home or self-care (01) | DRG 242 ==
LOC: ER 11:26 → 6 SOUTH 13:02 → OBSVTOIN 13:36
PROVIDERS: ADMIT Student in an Organized Health Care Education/Training Program; ATTEND Student in an Organized Health Care Education/Training Program
PROC: 0JH806Z Insertion of Pacemaker, Dual Chamber into Abdomen Subcutaneous Tissue and Fascia, Open Approach (ICD-10-PCS; 2021-09-25)
PROC: 02H63JZ Insertion of Pacemaker Lead into Right Atrium, Percutaneous Approach (ICD-10-PCS; 2021-09-25)
PROC: 02HK3JZ Insertion of Pacemaker Lead into Right Ventricle, Percutaneous Approach (ICD-10-PCS; 2021-09-25)
PROC: 4B02XSZ Measurement of Cardiac Pacemaker, External Approach (ICD-10-PCS; principal; 2021-09-26)
DX: I44.2 Atrioventricular block, complete (principal); E43 Unspecified severe protein-calorie malnutrition; J96.01 Acute respiratory failure with hypoxia; I49.5 Sick sinus syndrome; E78.00 Pure hypercholesterolemia, unspecified; E78.5 Hyperlipidemia, unspecified; F17.210 Nicotine dependence, cigarettes, uncomplicated; I11.0 Hypertensive heart disease with heart failure; I25.10 Atherosclerotic heart disease of native coronary artery without angina pectoris; I25.5 Ischemic cardiomyopathy; I50.9 Heart failure, unspecified; Z95.0 Presence of cardiac pacemaker; Z95.1 Presence of aortocoronary bypass graft; Z20.822 Contact with and (suspected) exposure to COVID-19
CPT/HCPCS: 33208; 36415; 71045; 71046; 80048; 80053; 83735; 84100; 84443; 84484; 85025; 85610; 87426; 93005; 94618; 96361; 96365; 96375; 99152; 99153; C1785; G0379; J0690; J1265; J2250; J3010; J3490; U0003; U0005; 97116-GP; 99285-25; G0378